=== PATIENT | female | born 1960 | race Two or more races ===

== ENCOUNTER 2018-06-04 17:38 | Inpatient (IN) | payer OTHER, MEDICAID ==
[~2018-06-04] VITALS: Ht 154.9 cm; Wt 85.3 kg
[~2018-06-04 17:38] MED LIST: METF-416 PO; WARF5TAB76 PO; WARF7.5T22 PO
[2018-06-04] MEDS ORDERED: ONDANSETRON HCL 4MG/2ML INJ IV STA (18:12)
[2018-06-04] MEDS ORDERED: MORPHINE SULFATE 4 MG/ML CPJ (NOT FOR IM USE) IV STA (18:12)
[2018-06-04 19:11] LABS: BASOPHILS % 0.8 % (0.0-2.0); EOSINOPHILS % 10.6 % (0.0-5.0); HEMATOCRIT. 43.6 % (36.0-48.0); HEMOGLOBIN. 14.1 g/dL (12.0-16.0); LYMPHOCYTES % 21.4 % (20.0-50.0); MEAN CORPUSCULAR HEMOGLOBIN 27.8 pg (28.0-32.0); MEAN CORPUSCULAR VOLUME 85.9 fL (81.0-99.0); MONOCYTES % 7.4 % (2.0-8.0); NEUTROPHILS % 59.8 % (40.0-76.0); RED BLOOD CELL COUNT 5.07 mill/uL (4.2-5.4); RED CELL DISTRIBUTION WIDTH 13.4 % (11.6-14.6)
[2018-06-04 19:15] LABS: CHLORIDE 107 mEq/L (98-107)
[2018-06-04 19:18] LABS: INR 1.2; PROTHROMBIN TIME 11.7 sec (9.1-11.1)
[2018-06-04 19:28] LABS: MEAN PLATELET VOLUME 13.5 fl (7.4-10.4); PLATELET 70 x1000/uL (130-400)
[2018-06-04] MEDS ORDERED: FUROSEMIDE 40MG/4ML VIAL IVP ONE (21:30)
[2018-06-04] MEDS ORDERED: ASPIRIN 325MG EC TABLET PO ONE (21:30)
[2018-06-05] VITALS (7 sets, daily range): BP systolic 108–146; BP diastolic 49–89
[2018-06-05] MEDS ORDERED: HYDRALAZINE 20MG/ML VIAL IV PRN (04:00)
[2018-06-05] MEDS ORDERED: DEXTROSE 50% WATER 50ML SYRINGE IV PRN (04:00)
[2018-06-05] MEDS ORDERED: HYDROCODONE/ACETAMINOPHEN 5/325MG TABLET PO NR (04:30)
[2018-06-05] MEDS: PANTOPRAZOLE 40MG DR TABLET PO SCH (06:01)
[2018-06-05] MEDS: BLOOD SUGAR DIAGNOSTIC STRIP TEST SCH ×4 (06:01→21:48)
[2018-06-05] MEDS: INSULIN LISPRO 100 UNITS/ML SUBCUT SCH ×4 (06:38→21:57)
[2018-06-05] MEDS ORDERED: BLOOD SUGAR DIAGNOSTIC STRIP TEST SCH (06:45)
[2018-06-05] MEDS ORDERED: ONDANSETRON HCL 4MG/2ML INJ IV PRN (10:30)
[2018-06-05] MEDS ORDERED: ASPIRIN 81MG TABLET PO SCH (11:00)
[2018-06-05 11:15] LABS: INR 1.2; PROTHROMBIN TIME 11.7 sec (9.1-11.1)
[2018-06-05] MEDS: FUROSEMIDE 40MG/4ML VIAL IVP SCH ×2 (11:17→17:11)
[2018-06-05] MEDS: LOSARTAN POTASSIUM 50 MG TABLET PO SCH (11:17)
[2018-06-05] MEDS: POTASSIUM CHLORIDE 20MEQ TABLET SR PO SCH ×2 (11:26→17:11)
[2018-06-05 12:08] LABS: HEMATOCRIT 41.9 % (36.0-48.0); HEMOGLOBIN 13.8 g/dL (12.0-16.0); MEAN CORPUSCULAR VOLUME 85.1 fL (81.0-99.0); RED BLOOD CELL COUNT 4.93 mill/uL (4.2-5.4); RED CELL DISTRIBUTION WIDTH 13.2 % (11.6-14.6)
[2018-06-05 12:14] LABS: CHLORIDE 104 mEq/L (98-107)
[2018-06-05 12:20] LABS: LDL CHOLESTEROL 96 mg/dL (5-100)
[2018-06-05 12:22] LABS: HDL CHOLESTEROL 33 mg/dL (40-59)
[2018-06-05 14:28] LABS: PLATELET 66 x1000/uL (130-400)
[2018-06-05 16:47] LABS: BG BASE EXCESS 2.9 mmol/L (-2.0-2.0); BG CARBOXYHEMOGLOBIN 1.4 % (0.5-1.5); BG DEOXYHEMOGLOBIN 9.2 % (0.0-5.0); BG FRACTION INSPIRED OXYGEN 21; BG HCO3 ACT 27.6 mmol/L (22.0-26.0); BG METHEMOGLOBIN 0.3 % (0.0-1.5); BG OXYGEN SATURATION 90.6 % (92.0-98.5); BG OXYHEMOGLOBIN 89.1 % (94.0-97.0); BG PCO2 42.6 mmHg (35.0-45.0); BG PH 7.429 (7.350-7.450); BG PO2 59.1 mmHg (75.0-100.0); BG SAMPLE SITE LEFT RADIAL; BG TOTAL HEMOGLOBIN 14.4 g/dL (12.0-18.0); BG VENT MODE ROOM AIR
[2018-06-05] MEDS ORDERED: WARFARIN SODIUM 7.5MG TABLET PO SCH (18:00)
[2018-06-05] MEDS ORDERED: ATORVASTATIN CALCIUM 10MG TABLET PO SCH (21:00)
[2018-06-06] VITALS: BP 115/60
[2018-06-06 04:00] VITALS: BP 108/64
[2018-06-06] MEDS: BLOOD SUGAR DIAGNOSTIC STRIP TEST SCH ×3 (05:39→17:56)
[2018-06-06] MEDS: PANTOPRAZOLE 40MG DR TABLET PO SCH (06:18)
[2018-06-06] MEDS: INSULIN LISPRO 100 UNITS/ML SUBCUT SCH ×3 (06:19→18:16)
[2018-06-06 07:28] LABS: HEMATOCRIT 44.1 % (36.0-48.0); HEMOGLOBIN 14.6 g/dL (12.0-16.0); MEAN CORPUSCULAR HEMOGLOBIN 28.1 pg (28.0-32.0); MEAN CORPUSCULAR VOLUME 84.9 fL (81.0-99.0); PLATELET 79 x1000/uL (130-400); RED BLOOD CELL COUNT 5.19 mill/uL (4.2-5.4); RED CELL DISTRIBUTION WIDTH 13.1 % (11.6-14.6)
[2018-06-06 07:39] LABS: INR 1.2
[2018-06-06 07:52] LABS: CHLORIDE 103 mEq/L (98-107)
[2018-06-06 08:00] VITALS: BP 105/73
[2018-06-06] MEDS: LOSARTAN POTASSIUM 50 MG TABLET PO SCH (08:25)
[2018-06-06] MEDS: POTASSIUM CHLORIDE 20MEQ TABLET SR PO SCH ×2 (09:42→18:13)
[2018-06-06] MEDS: FUROSEMIDE 40MG/4ML VIAL IVP SCH ×2 (09:42→18:13)
[2018-06-06] MEDS ORDERED: APIXABAN 5 MG TABLET PO SCH (12:00)
[2018-06-06 16:00] VITALS: BP 110/78
[2018-06-06 19:55] VITALS: BP 110/78
[2018-06-06 20:00] VITALS: BP 139/95
[2018-06-06 20:05] LABS: T4 FREE 1.1 ng/dL (0.76-1.46)
[2018-06-10 22:15] LABS: VITAMIN B12 SERUM > 2000.0 pg/mL (211-911)
== END 2018-06-06 20:40 | DRG 64 ==
LOC: ER 17:38 → 5WST 22:37 → EDBEDREQ 22:41 → EDBEDREQTM 22:41 → ENRESERV 23:09
PROVIDERS: ADMIT Internal Medicine; ATTEND Internal Medicine
DX: I63.9 Cerebral infarction, unspecified (principal); I50.23 Acute on chronic systolic (congestive) heart failure; E66.9 Obesity, unspecified; E11.65 Type 2 diabetes mellitus with hyperglycemia; H40.9 Unspecified glaucoma; I48.91 Unspecified atrial fibrillation; D69.6 Thrombocytopenia, unspecified; E11.40 Type 2 diabetes mellitus with diabetic neuropathy, unspecified; E78.5 Hyperlipidemia, unspecified; G93.89 Other specified disorders of brain; I11.0 Hypertensive heart disease with heart failure; I25.10 Atherosclerotic heart disease of native coronary artery without angina pectoris; Z79.01 Long term (current) use of anticoagulants; Z95.5 Presence of coronary angioplasty implant and graft; Z79.899 Other long term (current) drug therapy; Z68.35 Body mass index [BMI] 35.0-35.9, adult
CPT/HCPCS: 36415; 36600; 70544; 70553; 71045; 80048; 80061; 82375; 82607; 82805; 82962; 83036; 83880; 84439; 84443; 84484; 85027; 92610; 93005; 93306; 93880; 93923; 96374; 97162; 99285; J1815; J1940; J2405

== ENCOUNTER 2021-01-09 09:11 | Inpatient (IN) | payer MEDICARE, OTHER ==
[~2021-01-09] VITALS: Ht 154.9 cm; Wt 61.2 kg
[~2021-01-09 09:11] MED LIST changes: -WARF5TAB76 PO; -WARF7.5T22 PO
[2021-01-09 10:16] LABS: BASOPHILS % 1.4 % (0.0-2.0); EOSINOPHILS % 10.7 % (0.0-5.0); HEMATOCRIT. 34.9 % (36.0-48.0); HEMOGLOBIN. 11.6 g/dL (12.0-16.0); LYMPHOCYTES % 14.1 % (20.0-50.0); MEAN CORPUSCULAR HEMOGLOBIN 27.9 pg (28.0-32.0); MEAN CORPUSCULAR VOLUME 84.4 fL (81.0-99.0); MEAN PLATELET VOLUME 12.4 fl (7.4-10.4); MONOCYTES % 6.6 % (2.0-8.0); NEUTROPHILS % 67.2 % (40.0-76.0); PLATELET 71 x1000/uL (130-400); RED BLOOD CELL COUNT 4.14 mill/uL (4.2-5.4); RED CELL DISTRIBUTION WIDTH 14.1 % (11.6-14.6)
[2021-01-09 10:23] LABS: CHLORIDE 116 mEq/L (98-107)
[2021-01-09] MEDS ORDERED: MORPHINE SULFATE 2 MG/ML CPJ (NOT FOR IM USE) IV ONE (10:45)
[2021-01-09] MEDS ORDERED: FUROSEMIDE 40MG/4ML VIAL IVP ONE (10:45)
[2021-01-09] MEDS ORDERED: CLONIDINE 0.1MG TABLET PO PRN (14:45)
[2021-01-09] MEDS ORDERED: ONDANSETRON HCL 4MG/2ML INJ IV PRN (14:45)
[2021-01-09] MEDS ORDERED: ACETAMINOPHEN 325MG TABLET PO PRN (14:45)
[2021-01-09 17:41] VITALS: BP 118/67
[2021-01-09] MEDS ORDERED: lantus SUBCUT (18:48)
[2021-01-09] MEDS ORDERED: FURO-151 PO (18:58)
[2021-01-09] MEDS ORDERED: ASPI-1497 PO (18:58)
[2021-01-09] MEDS ORDERED: APIX5TAB PO (18:58)
[2021-01-09] MEDS ORDERED: DEXTROSE 50% WATER 50ML SYRINGE IV PRN (19:15)
[2021-01-09 20:00] VITALS: BP 99/68
[2021-01-09] MEDS: BLOOD SUGAR DIAGNOSTIC STRIP TEST SCH (20:39)
[2021-01-09] MEDS: INSULIN LISPRO 100 UNITS/ML SUBCUT SCH (20:39)
[2021-01-09 20:45] LABS: BASOPHILS % 1.1 % (0.0-2.0); EOSINOPHILS % 7.2 % (0.0-5.0); HEMATOCRIT. 34.5 % (36.0-48.0); HEMOGLOBIN. 11.4 g/dL (12.0-16.0); LYMPHOCYTES % 20.2 % (20.0-50.0); MEAN CORPUSCULAR HEMOGLOBIN 27.9 pg (28.0-32.0); MEAN CORPUSCULAR VOLUME 84.6 fL (81.0-99.0); MEAN PLATELET VOLUME 12.8 fl (7.4-10.4); MONOCYTES % 5.8 % (2.0-8.0); NEUTROPHILS % 65.7 % (40.0-76.0); PLATELET 67 x1000/uL (130-400); RED BLOOD CELL COUNT 4.08 mill/uL (4.2-5.4); RED CELL DISTRIBUTION WIDTH 14.1 % (11.6-14.6)
[2021-01-09 21:05] LABS: CHLORIDE 111 mEq/L (98-107)
[2021-01-09] MEDS: FUROSEMIDE 40MG/4ML VIAL IVP SCH (21:47)
[2021-01-10] VITALS: BP 92/55
[2021-01-10 00:18] LABS: CREATINE KINASE 27 IU/L (26-192)
[2021-01-10 00:20] LABS: CREATINE KINASE MB FRACTION < 1.0 ng/mL (0.5-3.6)
[2021-01-10 04:00] VITALS: BP 104/61
[2021-01-10] MEDS: BLOOD SUGAR DIAGNOSTIC STRIP TEST SCH ×4 (07:04→20:57)
[2021-01-10 07:24] LABS: CREATINE KINASE 22 IU/L (26-192)
[2021-01-10 07:26] LABS: CREATINE KINASE MB FRACTION < 1.0 ng/mL (0.5-3.6)
[2021-01-10 07:40] LABS: HEPATITIS B SURFACE ANTIGEN NEGATIVE
[2021-01-10] MEDS: INSULIN LISPRO 100 UNITS/ML SUBCUT SCH ×4 (07:42→20:57)
[2021-01-10 08:00] VITALS: BP 106/71
[2021-01-10 08:10] LABS: HEPATITIS A AB IGM NEGATIVE (NEGATIVE)
[2021-01-10] MEDS ORDERED: ASPIRIN 81MG EC TABLET PO SCH (09:00)
[2021-01-10] MEDS: FUROSEMIDE 40MG/4ML VIAL IVP SCH (09:42)
[2021-01-10 12:00] VITALS: BP 107/67
[2021-01-10 16:00] VITALS: BP 93/64
[2021-01-10 16:52] LABS: HEMATOCRIT. 37.3 % (36.0-48.0); HEMOGLOBIN. 12.4 g/dL (12.0-16.0); MEAN CORPUSCULAR HEMOGLOBIN 27.6 pg (28.0-32.0); MEAN CORPUSCULAR VOLUME 83.2 fL (81.0-99.0); MEAN PLATELET VOLUME 12.4 fl (7.4-10.4); PLATELET 73 x1000/uL (130-400); RED BLOOD CELL COUNT 4.49 mill/uL (4.2-5.4); RED CELL DISTRIBUTION WIDTH 13.7 % (11.6-14.6)
[2021-01-10 20:00] VITALS: BP 103/74
[2021-01-10 20:26] LABS: PLATELET ESTIMATE DECREASED
[2021-01-10] MEDS: CARVEDILOL 3.125 MG TABLET PO SCH (20:58)
[2021-01-11] VITALS: BP_SYST 102; BP_SYST 115; BP_SYST 94; BP_DIAS 62; BP_DIAS 64; BP_DIAS 75
[2021-01-11 04:00] VITALS: BP 91/64
[2021-01-11] MEDS: BLOOD SUGAR DIAGNOSTIC STRIP TEST SCH ×2 (06:24→12:35)
[2021-01-11] MEDS: INSULIN LISPRO 100 UNITS/ML SUBCUT SCH ×2 (07:09→12:35)
[2021-01-11 07:44] LABS: CHLORIDE 107 mEq/L (98-107)
[2021-01-11 08:15] LABS: HEMOGLOBIN. 12.5 g/dL (12.0-16.0); MEAN CORPUSCULAR HEMOGLOBIN 27.2 pg (28.0-32.0); MEAN CORPUSCULAR VOLUME 83.1 fL (81.0-99.0); MEAN PLATELET VOLUME 13.4 fl (7.4-10.4); PLATELET 89 x1000/uL (130-400); RED BLOOD CELL COUNT 4.57 mill/uL (4.2-5.4); RED CELL DISTRIBUTION WIDTH 13.8 % (11.6-14.6)
[2021-01-11 08:40] VITALS: BP 98/64
[2021-01-11] MEDS: CARVEDILOL 3.125 MG TABLET PO SCH (09:00)
[2021-01-11] MEDS: FUROSEMIDE 40MG/4ML VIAL IVP SCH (10:13)
[2021-01-11 12:20] VITALS: BP 126/92
[2021-01-11 18:05] LABS: PLATELET ESTIMATE DECREASED
== END 2021-01-11 13:05 | disposition left against medical advice (07) | DRG 292 ==
LOC: ER 09:11 → ENRESERV 15:41 → 6WST 16:41
PROVIDERS: ADMIT Internal Medicine; ATTEND Internal Medicine
PROC: 4B02XSZ Measurement of Cardiac Pacemaker, External Approach (ICD-10-PCS; principal; 2021-01-11)
DX: I11.0 Hypertensive heart disease with heart failure (principal); I31.3 Pericardial effusion (noninflammatory); I48.20 Chronic atrial fibrillation, unspecified; I48.92 Unspecified atrial flutter; I50.23 Acute on chronic systolic (congestive) heart failure; N28.1 Cyst of kidney, acquired; D69.6 Thrombocytopenia, unspecified; E78.5 Hyperlipidemia, unspecified; I27.20 Pulmonary hypertension, unspecified; I34.0 Nonrheumatic mitral (valve) insufficiency; Z79.4 Long term (current) use of insulin; Z86.73 Personal history of transient ischemic attack (TIA), and cerebral infarction without residual deficits; Z95.0 Presence of cardiac pacemaker; Z20.822 Contact with and (suspected) exposure to COVID-19; Z79.01 Long term (current) use of anticoagulants; Z79.899 Other long term (current) drug therapy; Z53.29 Procedure and treatment not carried out because of patient's decision for other reasons; I42.0 Dilated cardiomyopathy; Z79.82 Long term (current) use of aspirin; E11.51 Type 2 diabetes mellitus with diabetic peripheral angiopathy without gangrene
CPT/HCPCS: 36415; 71045; 76700; 80048; 80053; 82550; 82553; 82962; 83735; 83880; 84443; 84484; 85025; 86705; 86709; 86803; 87340; 87426; 93005; 93306; 93970; 99285; J1815; J1940; J2270